=== PATIENT | male | born 1985 | race African-American/Black ===

== ENCOUNTER 2016-06-09 09:18 | Emergency (ER) | payer OTHER, BC ==
[~2016-06-09] VITALS: Ht 180.3 cm; Wt 144.2 kg
[~2016-06-09 09:18] MED LIST: METO-93 PO; OMEP20CA9 PO
[2016-06-09] MEDS ORDERED: SODIUM CHLORIDE FLUSH 10ML SYR IVF ONE (10:30)
[2016-06-09] MEDS ORDERED: SODIUM CHLORIDE 0.9% 1,000ML IVBOLUS ONE (10:30)
[2016-06-09 11:01] LABS: HEMOGLOBIN 15.9 g/dL (13.7-18.0)
[2016-06-09 11:05] LABS: ASPARTATE AMINO TRANSFERASE 14 U/L (15-37); BLOOD UREA NITROGEN 12 mg/dL (7-18)
[2016-06-09 11:22] LABS: ICTOTEST NEGATIVE
[2016-06-09] MEDS ORDERED: OMNIPAQUE 350 MG/ML, 100ML BOTTLE ONE (12:22)
[2016-06-09 12:49] VITALS: BP 121/77
== END 2016-06-09 12:51 | disposition home or self-care (01) ==
LOC: ED 11:05
DX: R10.32 Left lower quadrant pain (principal); S39.011A Strain of muscle, fascia and tendon of abdomen, initial encounter; J30.1 Allergic rhinitis due to pollen; X58.XXXA Exposure to other specified factors, initial encounter; Y93.89 Activity, other specified; Y92.89 Other specified places as the place of occurrence of the external cause; Y99.8 Other external cause status
CPT/HCPCS: 36415; 74177; 76857; 80053; 81003; 83605; 83690; 85025; 99285; Q9967

== ENCOUNTER 2017-03-02 04:27 | Emergency (ER) | payer OTHER, BC ==
[~2017-03-02] VITALS: Ht 185.4 cm; Wt 306.0 kg
[2017-03-02] MEDS ORDERED: ONDANSETRON 2MG/ML, 2ML ONE (04:54)
[2017-03-02] MEDS ORDERED: ASPIRIN 81 MG TABLET CHEW ONE (04:54)
[2017-03-02] MEDS ORDERED: ONDANSETRON 2MG/ML, 2ML IVPush ONE (05:00)
[2017-03-02] MEDS ORDERED: SODIUM CHLORIDE FLUSH 10ML SYR IVF ONE ×2 (05:00→07:30)
[2017-03-02] MEDS ORDERED: ASPIRIN 81 MG TABLET CHEW PO ONE (05:00)
[2017-03-02] MEDS ORDERED: NITROGLYCERIN SINGLE TAB 0.4 MG SL PRN (05:00)
[2017-03-02] MEDS ORDERED: MORPHINE SULFATE 4 MG/ML, 1ML IVPush PRN (05:00)
[2017-03-02 05:23] LABS: HEMATOCRIT 51.5 % (39.2-51.8); HEMOGLOBIN 17.1 g/dL (13.7-18.0); WHITE BLOOD COUNT 7.9 x10^3/uL (3.4-10)
[2017-03-02 05:35] LABS: BLOOD UREA NITROGEN 9 mg/dL (7-18)
[2017-03-02 05:43] LABS: IS PT STATUS REG ER OR PRE ER? YES
[2017-03-02 06:22] VITALS: BP 99/68
== END 2017-03-02 08:52 | disposition home or self-care (01) ==
LOC: ED 05:18 → EDIP 07:18 → UNDOADMIN 07:18 → ED 08:52
DX: I48.91 Unspecified atrial fibrillation (principal); R07.89 Other chest pain; E66.01 Morbid (severe) obesity due to excess calories; Z95.5 Presence of coronary angioplasty implant and graft
CPT/HCPCS: 36415; 71010; 80048; 82040; 83880; 84484; 85025; 93005; 99285

== ENCOUNTER 2018-04-09 07:42 | Observation (INO) | payer BC, OTHER ==
[~2018-04-09] VITALS: Ht 182.9 cm; Wt 145.7 kg
[~2018-04-09 07:42] MED LIST changes: +DILT120C80 PO
[2018-04-09] MEDS ORDERED: SODIUM CHLORIDE 0.9% 1,000 ML IV SCH (08:02)
[2018-04-09 08:29] VITALS: BP 119/69
[2018-04-09] MEDS ORDERED: MIDAZOLAM 1 MG/ML, 2ML ONE ×2 (09:15→17:06)
[2018-04-09] MEDS ORDERED: PROPOFOL 50 ML ONE (09:15)
[2018-04-09] MEDS ORDERED: FENTANYL PF 250 MCG/5ML ONE (09:16)
[2018-04-09] MEDS ORDERED: ONDANSETRON 2MG/ML, 2ML ONE (10:45)
[2018-04-09] MEDS ORDERED: PHENYLEPHRINE 10 MG/ML ONE (10:45)
[2018-04-09] MEDS ORDERED: DEXAMETHASONE 4 MG/ML, 1ML ONE (10:45)
[2018-04-09] MEDS ORDERED: SUCCINYLCHOLINE 20 MG/ML, 10ML ONE (10:45)
[2018-04-09] MEDS ORDERED: ROCURONIUM 10 MG/ML,10ML ONE (10:45)
[2018-04-09] MEDS ORDERED: LIDOCAINE 2%, 20ML ONE (10:56)
[2018-04-09] MEDS ORDERED: ISOPROTERENOL 0.2MG/ML, 1ML ONE ×3 (11:19→15:02)
[2018-04-09] MEDS ORDERED: FENTANYL PF 100 MCG/2ML ONE ×2 (12:25→15:49)
[2018-04-09] MEDS ORDERED: ONDANSETRON ODT 8 MG PO PRN (13:00)
[2018-04-09] MEDS ORDERED: EPHEDRINE 50 MG/ML, 1ML IM PRN (13:00)
[2018-04-09] MEDS ORDERED: EPHEDRINE 50 MG/ML, 1ML IVPush PRN (13:00)
[2018-04-09] MEDS ORDERED: DIPHENHYDRAMINE 50 MG/ML, 1ML IVPush PRN (13:00)
[2018-04-09] MEDS ORDERED: PROMETHAZINE 12.5 MG SUPP PR PRN (13:00)
[2018-04-09] MEDS ORDERED: ACETAMINOPHEN 325 MG TABLET PO PRN ×2 (13:00→16:00)
[2018-04-09] MEDS ORDERED: MEPERIDINE/PF 25MG/0.5ML IVPush PRN (13:00)
[2018-04-09] MEDS ORDERED: FENTANYL PF 100 MCG/2ML IV PRN (13:00)
[2018-04-09] MEDS ORDERED: PROMETHAZINE 25 MG SUPP PR PRN (13:00)
[2018-04-09] MEDS ORDERED: MIDAZOLAM 1 MG/ML, 2ML IV PRN (13:00)
[2018-04-09] MEDS ORDERED: PROMETHAZINE 25 MG/ML, 1ML IV PRN (13:00)
[2018-04-09] MEDS ORDERED: OXYcodone 5 MG/5 ML ORAL.SOL UDC PO PRN (13:00)
[2018-04-09] MEDS ORDERED: ONDANSETRON 2MG/ML, 2ML IV PRN (13:00)
[2018-04-09] MEDS ORDERED: MORPHINE SULFATE 4 MG/ML, 1ML IVPush PRN (13:00)
[2018-04-09] MEDS ORDERED: ADENOSINE 6 MG/2 ML ONE (14:59)
[2018-04-09] MEDS ORDERED: PROTAMINE SULFATE 10 MG/ML, 5ML ONE (15:36)
[2018-04-09] MEDS ORDERED: ZOLPIDEM 5MG TABLET PO PRN (16:00)
[2018-04-09] MEDS ORDERED: ACETAMINOPHEN 650 MG/20.3 ML UDC ONE (17:06)
[2018-04-09] MEDS ORDERED: OXYcodone 5 MG/5 ML ORAL.SOL UDC ONE (17:14)
[2018-04-09] MEDS ORDERED: METOPROLOL SUCCINATE 50 MG TAB.ER.24H PO SCH (21:00)
[2018-04-09 21:17] VITALS: BP 103/66
[2018-04-10 01:18] VITALS: BP 100/63
[2018-04-10] MEDS ORDERED: FLECAINIDE 100MG TABLET PO SCH (08:00)
[2018-04-10] MEDS ORDERED: ACET325T14 PO (08:01)
[2018-04-10] MEDS ORDERED: FLEC100T PO (08:01)
[2018-04-10 08:14] VITALS: BP 104/69
== END 2018-04-10 10:30 | disposition home or self-care (01) ==
LOC: CACL 07:42 → ORIP 15:59 → CACL 15:59 → 5SO 17:08
PROVIDERS: ADMIT Internal Medicine Cardiovascular Disease; ATTEND Internal Medicine Cardiovascular Disease
DX: I47.1 Supraventricular tachycardia (principal); I44.2 Atrioventricular block, complete; Z95.0 Presence of cardiac pacemaker
CPT/HCPCS: 85347; 93306; 93462; 93613; 93621; 93623; 93653; 93662; C1730; C1732; C1766; C1893; C1894; C2630; G0378; J0153; J0330; J1100; J2250; J2370; J2405; J2704; J2720; J3010; J3490